=== PATIENT | female | born 1950 | race Caucasian/White ===

== ENCOUNTER → 2019-04-23 | Outpatient (CLI) | payer OTHER ==
[~2019-04-23] MED LIST: ASA81BEC PO; CRESTOR10 MG PO; CYMBALTA60 MG PO; METOPROLOL SUCC25 M1 PO; RITALIN LA20 MG PO
== END ==
LOC: SJCVCIMAG 07:31
DX: Z01.818 Encounter for other preprocedural examination (principal); I25.89 Other forms of chronic ischemic heart disease; I48.0 Paroxysmal atrial fibrillation; E78.5 Hyperlipidemia, unspecified; I10 Essential (primary) hypertension; Z79.899 Other long term (current) drug therapy

== ENCOUNTER → 2019-05-03 | Outpatient (CLI) | payer OTHER ==
[~2019-05-03] VITALS: Ht 170.2 cm; Wt 79.4 kg
[2019-05-03 08:52] VITALS: BP 106/57
[2019-05-03 08:59] LABS: HEMATOCRIT 33.1 % (37.0-47.0); HEMOGLOBIN 10.5 gm/dL (12.0-15.0); MCHC 31.8 g/dL (28.0-37.0); MCV 81.9 fL (80.0-100.0); PLATELET COUNT 212 thou/uL (150-400); RBC 4.04 mil/uL (4.20-5.00); RDW 14.3 % (10.5-14.5)
[2019-05-03 09:05] LABS: CALCIUM 9.1 mg/dL (8.5-10.1); CREATININE 0.8 mg/dL (0.6-1.0); POTASSIUM 4.3 mmol/L (3.5-5.1)
[2019-05-03 09:26] LABS: ABSOLUTE NEUTROPHILS 2.2 thou/uL (1.4-8.2)
[2019-05-03 09:27] LABS: PLATELET ESTIMATE NORMAL
--- NOTE | 2019-05-03 13:08 | EKG ---
[facility] [place] [address] ELECTROCARDIOGRAM REPORT Name: KIMBERLY ALVES Room #: REG [facility]#: [id number] Admission: 05/03/19 Attend Phys: Mayo Jha Discharge: Date of : 52 Report #: [id number] THIS REPORT FOR: cc: Иван Ramirez MD, Bryan W. MD Couchonnal, Luis F. MD ~ THIS REPORT FOR: //name// [facility] Test Date: 2019-05-03 Test Time: 08:50:39 Pat Name: KIMBERLY ALVES Department: Room: Gender: Manager [employer]: [facility] : 1950 Requested By: Mayo Jha Order Number: [id number] MD: Luisito Singleton Measurements Intervals Honeydew Rate: 64 P: 73 MS: 124 QRS: -3 QRSD: 113 T: 13 QT: 451 QTc: 466 Interpretive Statements Sinus rhythm Incomplete right bundle branch block No previous ECG available for comparison Electronically Signed On 05-03-2019 13:07:17 [employer] by Luisito Singleton [email or web address] <ELECTRONICALLY SIGNED> By: Luisito Singleton MD 05/03/19 1307 0850 0850 Luisito Singleton MD /JACOB
--- NOTE | 2019-05-08 22:14 | CATHLAB ---
[facility] [place] [address] INVASIVE PROCEDURE REPORT Name: KIMBERLY ALVES Room #: REG [facility]#: [id number] Admission: 05/03/19 Attend Phys: Mayo Jha Discharge: Date of : 52 Report #: [id number] THIS REPORT FOR: cc: Иван Ramirez MD, Bryan W. MD Lammoglia, Francisco J. MD ~ APPROVED REPORT Study performed: 05/03/2019 10:36:53 Patient Details Patient Status: Out-Patient Room #: The patient is a 69 year-old female Event Personnel Mayo Jha Lump Room Supervisor, Shruthi Beltran RN RN, Nina Robbins Monitor, Terrie Ayala Scrub Procedures Performed Art Access - R femoral artery* Left Heart Cath w/or w/o Coronaries [id number] [facility] 13462 Initial Mod Sed Same Phys/QHP Gr5y [id number] 80602 Mod Sed Same Phys/QHP Ea 494242 Hemostasis with Manual pressure, supervision of conscious sedation Indication Positive stress test, Chest pain Procedure Narrative The patient was brought electively to the Cardiac Catheterization Laboratory and was prepped and draped in a sterile manner. The Right Groin^ was infiltrated with 1% Lidocaine subcutaneous anesthesia. A PINNACLE 4FR Sheath #[id number] sheath was inserted into the RFA^. Coronary angiography was performed using coronary diagnostic catheters. The right coronary system was accessed and visualized with a JR4 catheter. The left coronary system was accessed and visualized with a JL4 catheter. The left ventricle was accessed and visualized with a JR4 catheter. Hemostasis was obtained with manual pressure following sheath removal without any complications. There was no hematoma. Intraoperative Conscious Sedation Sedation start time: 11.07 Case end Time: 11. [facility] [address] [place] [address] INVASIVE PROCEDURE REPORT Name: LONGKIMBERLY VEGAS Chirag Room #: REG [facility]#: [id number] Admission: 05/03/19 Attend Phys: Mayo Yañez Discharge: Date of : 52 Report #: [id number] Fluoro Time: 2.14 minutes Dose: DAP 1746.00 cGycm2 257 mGy Contrast Type and Amount: Omnipaque 55 ml Coronary Angiography The patient's coronary anatomy is right dominant. Diagnostic Cath Left Main large-caliber vessel of normal origin bifurcates left anterior descending left circumflex. Pre-of high-grade disease. LAD moderate caliber type II vessel which has a 30% eccentric plaque proximally. It then continues on giving rise to septal and diagonal branches. The distal third it tapers rapidly string-like vessel and terminates as a bifurcating vessel at the left ventricular apex. Its distal third there is irregularities noted of the lumen. The middle third has some tortuosity but no high-grade lesions Diagonal 1 small to moderate caliber vessel coursing along the anterolateral wall with luminal irregularities with no high-grade lesions Circumflex moderate caliber non-dominant vessel is a small first marginal branch were then continues to the posterior lateral area of the left ventricle giving rise to posterior wall branches. There is luminal irregularities but no high-grade lesions noted Right Coronary caliber dominant vessel of normal origin courses in the AV groove. Anterior angle of the heart disease as curled of the RCA proper without high-grade lesions noted and continues to the crux gives rise to a small posterior descending artery and terminates as a small posterior wall branch no high-grade lesions are noted R PDA small caliber tapering vessel without high-grade lesions present Left Ventriculography Left Ventriculography was not performed. Hemodynamics The aortic pressure is 129/70 mmHg with a mean of 97 mmHg. The left ventricular pressure is 146/5 mmHg with a mean of mmHg. The left ventricular end diastolic pressure is 32 mmHg. Conclusion 1. Coronary disease mild single-vessel nonobstructive 2. Normal hemodynamics [facility] [address] [place] [address] INVASIVE PROCEDURE REPORT Name: SUSY ALVESPAULINA Beard Room #: REG [facility]#: [id number] Admission: 05/03/19 Attend Phys: Mayo Yañez Discharge: Date of : 52 Report #: [id number] Recommendations Cardiac Risk Reduction Program <ELECTRONICALLY SIGNED> By: Mayo Jha MD 05/08/192212 12 12 Mayo Jha MD /INF
== END | disposition home or self-care (01) ==
LOC: CATH 08:09
PROVIDERS: Internal Medicine
DX: R94.39 Abnormal result of other cardiovascular function study (principal); R07.9 Chest pain, unspecified; I25.10 Atherosclerotic heart disease of native coronary artery without angina pectoris; E78.5 Hyperlipidemia, unspecified; M19.90 Unspecified osteoarthritis, unspecified site; Z98.890 Other specified postprocedural states; Z79.899 Other long term (current) drug therapy; Z85.3 Personal history of malignant neoplasm of breast; Z88.2 Allergy status to sulfonamides; Z88.8 Allergy status to other drugs, medicaments and biological substances; Z79.82 Long term (current) use of aspirin

== ENCOUNTER → 2020-05-18 | Outpatient (CLI) | payer OTHER ==
[2020-05-18 11:54] VITALS: BP 119/62
--- NOTE | 2020-05-20 10:39 | LINQ ---
[facility] [place] [address] LINQ PROCEDURE REPORT Name: KIMBERLY ALVES Room #: REG [facility] AugustoAkash#: [id number] Admission: 05/18/20 Attend Phys: Angie Jha Discharge: Date of : 52 Report #: [id number] THIS REPORT FOR: cc: Иван Ramirez MD, Bryan W. MD Lammoglia, Francisco J. MD ~ APPROVED REPORT Study performed: 05/18/2020 13:15:43 Patient Status: Out-Patient Room #: Event Personnel: DR ANGIE JHA Exam: Insertion of an implantable loop recorder Indications: Palpitations and history of paroxysmal atrial fibrillation The patient is a 70 year-old female with a history of Paroxysmal Atrial Fibrillation and palpitation. Conscious Sedation Start time: 12:47 End Time: 13:06 Implanted Devices: [email or web address] - REVEAL LINQ LNQ11 SN: [id number] EXPIRATION DATE: 01-07-2021 Procedure The patient underwent informed consent. We discussed the details of the procedure including the risks, which include, but not limited to bleeding, infection, vascular damage, cardiac perforation, and pneumothorax. After informed consent was obtained the patient was brought to the laboratory prepped and hold. The left chest was prepped and draped in usual sterile manner. Utilizing sterile technique a 1% lidocaine was infused in the skin. This was carried forth subcutaneously with a spinal needle to anesthetize the entire subcutaneous region of the proposed insertion tract. Utilizing a 11 blade a small incision was made and with blunt and sharp dissection a pocket was generated. The device was then deployed with the included deployment tool. No complications were noted. Subcutaneous tissue was closed with 2 simple interrupted sutures and the skin was closed with a running 3-0 Vicryl subcuticular stitch. Dermabond Steri-Strips 4 x 4 OpSite were then utilized. Patient tolerated procedure well [address] [address] [employer] PROCEDURE REPORT Name: KIMBERLY ALVES Room #: REG [facility]#: [id number] Admission: 05/18/20 Attend Phys: Angie Yañez Discharge: Date of : 52 Report #: [id number] Complications The patient tolerated the procedure well and there were no complications associated with the procedure. Findings Specimens Removed: N/A Conclusion 1. Successful insertion of an implantable loop recorder Recommendations 1. Routine post loop recorder insertion protocol <ELECTRONICALLY SIGNED> By: Angie Jha MD 05/20/20 1039 38 38 Angie Jha MD /INF
== END | disposition home or self-care (01) ==
LOC: CATH 09:38
PROVIDERS: ATTEND Internal Medicine
DX: I48.0 Paroxysmal atrial fibrillation (principal); R00.2 Palpitations; Z98.890 Other specified postprocedural states; Z79.899 Other long term (current) drug therapy; Z79.82 Long term (current) use of aspirin; Z79.01 Long term (current) use of anticoagulants